=== PATIENT | female | born 1995 | race Caucasian/White ===

== ENCOUNTER 2017-08-28 16:26 | Emergency (ER) | payer OTHER ==
[~2017-08-28] VITALS: Ht 170.2 cm; Wt 65.3 kg
[2017-08-28 16:42] VITALS: BP 136/83
[2017-08-28 18:26] VITALS: BP 128/79
== END 2017-08-28 18:26 | disposition home or self-care (01) ==
LOC: MED 16:26
DX: B34.9 Viral infection, unspecified (principal); R21 Rash and other nonspecific skin eruption
CPT/HCPCS: 99283